=== PATIENT | female | born 1975 ===

== ENCOUNTER 2024-11-12 12:21 | Inpatient (IN) | payer OTHER ==
[2024-11-12 13:03] LABS: #Basophils 0.06 10x3/uL (0.0-0.2); #Eosinophils 0.16 10x3/uL (0.0-0.7); #Monocytes 0.80 10x3/uL (0.11-0.59); #Neutrophils 4.98 10x3/uL (1.40-6.50); %Basophils 0.8 % (0.0-1.0); %Eosinophils 2.1 % (0.0-10.0); %Lymphocytes 18.6 % (21.0-51.0); %Monocytes 10.7 % (0.0-10.0); %Neutrophils 66.5 % (42.0-75.0); Hematocrit 38.7 % (36.0-47.0); Hemoglobin 12.6 g/dL (12.0-16.0); Mean Corpuscular Hemoglobin 30.4 pg (27.0-31.0); Mean Corpuscular Volume 93.3 fL (78.0-98.0); Platelet Count 246 10x3/uL (130-400); Red Blood Cell (RBC) Count 4.15 mill/uL (4.20-5.40); White Blood Cell (WBC) Count 7.49 10x3/uL (4.8-10.8)
[2024-11-12 13:18] LABS: ALT (SGPT) 15 U/L (Less than 34); AST (SGOT) 23 U/L (11-34); Albumin 4.0 g/dL (3.1-4.5); Alkaline Phosphatase 72 U/L (40-110); Anion Gap 14 mmol/L (10-20); BUN (Urea Nitrogen) 17 mg/dL (9.8-20.1); Bilirubin, Total 0.4 mg/dL (0.3-1.2); Calc. Creatinine Clearance 0 mL/min (70-130); Calcium 9.1 mg/dL (7.8-10.44); Carbon Dioxide 25 mmol/L (22-29); Chloride 101 mmol/L (98-107); Globulin 2.7 g/dL (2.4-3.5); Glucose 85 mg/dL (70-105); Potassium 4.3 mmol/L (3.5-5.1); Sodium 136 mmol/L (136-145)
[2024-11-12 13:38] LABS: INR-International Normal Ratio 1.1; PTT 33.9 sec (22.9-36.1); Prothrombin Time 14.5 sec (12.0-14.7)
[2024-11-12] MEDS ORDERED: Iopamidol-370 76% 500 ML MDV (1 ML CHARGE) ONE (13:58)
[2024-11-12] MEDS ORDERED: Ondansetron PF 4 MG/2 ML Vial IVP PRN (14:37)
[2024-11-12] MEDS ORDERED: hydrALAZINE 20 MG/ML VIAL SLOW IVP PRN (14:39)
[2024-11-12] MEDS ORDERED: Aspirin Chewable 81 MG TAB ONE (16:27)
[2024-11-12 17:36] VITALS: BMI 28.1
[2024-11-12] MEDS: Acetaminophen 325 MG TAB PO PRN (20:50)
[2024-11-12 22:20] LABS: Magnesium 1.9 mg/dL (1.6-2.6)
[2024-11-13 04:04] LABS: Hematocrit 41.5 % (36.0-47.0); Hemoglobin 13.7 g/dL (12.0-16.0); Mean Corpuscular Hemoglobin 30.4 pg (27.0-31.0); Mean Corpuscular Volume 92.0 fL (78.0-98.0); Platelet Count 223 10x3/uL (130-400); Red Blood Cell (RBC) Count 4.51 mill/uL (4.20-5.40); White Blood Cell (WBC) Count 8.16 10x3/uL (4.8-10.8)
[2024-11-13 04:32] LABS: Anion Gap 11 mmol/L (10-20); BUN (Urea Nitrogen) 16 mg/dL (9.8-20.1); Calc. Creatinine Clearance 121 mL/min (70-130); Calcium 9.1 mg/dL (7.8-10.44); Carbon Dioxide 26 mmol/L (22-29); Cardiac Risk 5.2 (Less than 4.5); Chloride 104 mmol/L (98-107); Cholesterol 202 mg/dl (< 200 Desired); Glucose 94 mg/dL (70-105); HDL Cholesterol 39 mg/dL (>60 Neg Risk); LDL Cholesterol, Calculated 138 mg/dL; Potassium 3.9 mmol/L (3.5-5.1); Sodium 137 mmol/L (136-145); Triglycerides 125 mg/dL (Less than 150)
[2024-11-13] MEDS: Aspirin 81 mg Enteric Coated Tablet PO SCH (10:05)
[2024-11-13] MEDS: Ibuprofen 600 MG TAB PO PRN (11:08)
[2024-11-13] MEDS: Ketorolac Tromethamine 30 MG (1 mL) VIAL IVP SCH (14:45)
[2024-11-13] MEDS: Ketorolac Tromethamine 30 MG (1 mL) VIAL IVP PRN (17:17)
[2024-11-14] MEDS: diphenhydrAMINE 50 MG/ML VIAL IVP SCH (14:40)
[2024-11-14] MEDS: Prochlorperazine 10 MG/2 ML VIAL SLOW IVP SCH ×2 (14:41→17:00)
[2024-11-14] MEDS ORDERED: diphenhydrAMINE 50 MG/ML VIAL IVP SCH (18:00)
[2024-11-15 06:24] VITALS: TEMP 98.4
[2024-11-15 06:39] LABS: Cocaine Metabolite Screen Negative (Negative); THC/Cannabinoid Screen Negative (Negative); Tricyclic Screen Negative (Negative)
[2024-11-15 11:34] VITALS: BP 113/69
== END 2024-11-15 13:08 | DRG 103 ==
LOC: SUATTDRO 12:21 → ERS 12:21 → EEVIPCON 16:20 → 2SE 16:20 → OBSVTOIN 16:20 → OBS 11-13 12:38
PROVIDERS: ADMIT Internal Medicine; ATTEND Family Medicine
DX: G43.109 Migraine with aura, not intractable, without status migrainosus (principal); Z85.3 Personal history of malignant neoplasm of breast; Z87.891 Personal history of nicotine dependence; Z98.51 Tubal ligation status; Z98.890 Other specified postprocedural states; Z88.5 Allergy status to narcotic agent; Z79.899 Other long term (current) drug therapy
CPT/HCPCS: 36415; 36416; 70450; 70496; 70498; 70551; 71045; 80048; 80053; 80061; 80306; 83735; 84443; 84484; 85025; 85027; 85610; 85730; 86141; 93005; 93306; 94760; 96374; 96376; G0378; J0780; J1200; J1885; Q9967